=== PATIENT | male | born 1995 | race African-American/Black ===

== ENCOUNTER 2017-04-11 05:06 | Emergency (ER) | payer OTHER ==
[~2017-04-11] VITALS: Ht 182.9 cm; Wt 77.0 kg
[2017-04-11 05:07] VITALS: BP 160/94
== END 2017-04-11 06:30 | disposition left against medical advice (07) ==
LOC: ER 05:06
DX: G43.909 Migraine, unspecified, not intractable, without status migrainosus (principal); Z53.21 Procedure and treatment not carried out due to patient leaving prior to being seen by health care provider

== ENCOUNTER 2020-04-07 12:29 | Emergency (ER) | payer MEDICAID, OTHER ==
[~2020-04-07] VITALS: Ht 172.7 cm; Wt 82.0 kg
[2020-04-07 12:37] VITALS: BP 110/60
[2020-04-07] MEDS ORDERED: SODIUM CHLORIDE 0.9% 1,000 ML IV ONE (12:57)
[2020-04-07 13:31] LABS: BASOPHILS % 0.7 % (0.0-2.0); EOSINOPHILS % 1.4 % (0.0-5.0); HEMATOCRIT. 37.4 % (42.0-52.0); HEMOGLOBIN. 13.2 g/dL (14.0-18.0); LYMPHOCYTES % 20.4 % (20.0-50.0); MEAN CORPUSCULAR HEMOGLOBIN 31.4 pg (28.0-32.0); MEAN CORPUSCULAR VOLUME 89.3 fL (80.0-94.0); MEAN PLATELET VOLUME 8.1 fl (7.4-10.4); MONOCYTES % 10.6 % (2.0-8.0); NEUTROPHILS % 66.9 % (40.0-76.0); PLATELET 215 x1000/uL (130-400); RED BLOOD CELL COUNT 4.19 mill/uL (4.7-6.1); RED CELL DISTRIBUTION WIDTH 13.4 % (11.6-14.6)
[2020-04-07 14:23] LABS: CHLORIDE 110 mEq/L (98-107)
[2020-04-07 15:01] LABS: ETHANOL BLOOD < 10 mg/dL
== END 2020-04-07 17:14 | disposition left against medical advice (07) ==
LOC: ER 12:29
DX: F15.10 Other stimulant abuse, uncomplicated (principal); E11.9 Type 2 diabetes mellitus without complications; I10 Essential (primary) hypertension; G43.909 Migraine, unspecified, not intractable, without status migrainosus
CPT/HCPCS: 36415; 80053; 80320; 85025; 99283; J7030; G0480

== ENCOUNTER 2020-04-28 02:15 | Emergency (ER) | payer MEDICAID ==
[~2020-04-28] VITALS: Ht 177.8 cm; Wt 77.0 kg
[2020-04-28 02:56] LABS: BASOPHILS % 0.8 % (0.0-2.0); EOSINOPHILS % 7.1 % (0.0-5.0); HEMATOCRIT. 38.7 % (42.0-52.0); MEAN CORPUSCULAR HEMOGLOBIN 31.3 pg (28.0-32.0); MEAN CORPUSCULAR VOLUME 93.3 fL (80.0-94.0); MEAN PLATELET VOLUME 8.1 fl (7.4-10.4); MONOCYTES % 10.2 % (2.0-8.0); NEUTROPHILS % 49.9 % (40.0-76.0); PLATELET 229 x1000/uL (130-400); RED BLOOD CELL COUNT 4.15 mill/uL (4.7-6.1); RED CELL DISTRIBUTION WIDTH 14.2 % (11.6-14.6)
[2020-04-28 03:03] LABS: CHLORIDE 109 mEq/L (98-107)
[2020-04-28 03:10] LABS: ETHANOL BLOOD < 10 mg/dL
[2020-04-28 05:35] LABS: *AMPHETAMINES SCREEN URINE NEGATIVE (NEGATIVE)
[2020-04-28 05:36] LABS: *BARBITURATES SCREEN URINE NEGATIVE (NEGATIVE); *BENZODIAZEPINES SCREEN URINE NEGATIVE (NEGATIVE); *COCAINE SCREEN URINE NEGATIVE (NEGATIVE); METHADONE URINE SCREEN NEGATIVE (NEGATIVE); OPIATES URINE SCREEN NEGATIVE (NEGATIVE)
[2020-04-28 05:37] LABS: CANNABINOID URINE SCREEN PRESUMTIVE POSITIVE (NEGATIVE); PHENCYCLIDINE URINE SCREEN NEGATIVE (NEGATIVE)
[2020-04-28] MEDS: OLANZAPINE 10MG TABLET PO SCH (09:00)
[2020-04-28] MEDS ORDERED: LORAZEPAM 1MG TABLET PO ONE (09:45)
[2020-04-28] MEDS ORDERED: LORAZEPAM 2MG/ML CPJ IM ONE (21:15)
[2020-04-28] MEDS ORDERED: HALOPERIDOL LACTATE 5MG/ML VIAL IM ONE (21:15)
[2020-04-29] MEDS: OLANZAPINE 10MG TABLET PO SCH (09:34)
[2020-04-29 20:00] VITALS: BP 113/65
== END 2020-04-29 21:56 ==
LOC: ER 02:41
DX: F23 Brief psychotic disorder (principal); F91.8 Other conduct disorders; F15.10 Other stimulant abuse, uncomplicated; I10 Essential (primary) hypertension; E11.9 Type 2 diabetes mellitus without complications; G43.909 Migraine, unspecified, not intractable, without status migrainosus; Z03.818 Encounter for observation for suspected exposure to other biological agents ruled out; Z75.1 Person awaiting admission to adequate facility elsewhere
CPT/HCPCS: 36415; 80053; 80305; 80307; 80320; 80329; 85025; 87635; 93005; 96372; 99285; J1630; J2060; G0480

== ENCOUNTER 2023-03-12 18:41 | Emergency (ER) | payer MEDICAID ==
[~2023-03-12] VITALS: Ht 177.8 cm; Wt 68.0 kg
[2023-03-12] MEDS ORDERED: LORAZEPAM 2MG/ML CPJ IM ONE (21:30)
[2023-03-12] MEDS ORDERED: HALOPERIDOL LACTATE 5MG/ML VIAL IM ONE (21:30)
[2023-03-12 23:02] LABS: EOSINOPHILS % 5.7 % (0.0-5.0); HEMATOCRIT. 39.5 % (42.0-52.0); HEMOGLOBIN. 13.5 g/dL (14.0-18.0); LYMPHOCYTES % 48.7 % (20.0-50.0); MEAN CORPUSCULAR VOLUME 90.5 fL (80.0-94.0); MEAN PLATELET VOLUME 8.2 fl (7.4-10.4); MONOCYTES % 8.8 % (2.0-8.0); NEUTROPHILS % 35.8 % (40.0-76.0); PLATELET 294 x1000/uL (130-400); RED BLOOD CELL COUNT 4.36 mill/uL (4.7-6.1); RED CELL DISTRIBUTION WIDTH 13.5 % (11.6-14.6)
[2023-03-13 00:34] LABS: CHLORIDE 106 mEq/L (98-107)
[2023-03-13 00:40] LABS: ETHANOL BLOOD < 10 mg/dL (-10)
[2023-03-13 05:23] LABS: *AMPHETAMINES SCREEN URINE PRESUMTIVE POSITIVE (NEGATIVE); *BARBITURATES SCREEN URINE NEGATIVE (NEGATIVE); *BENZODIAZEPINES SCREEN URINE NEGATIVE (NEGATIVE); *COCAINE SCREEN URINE NEGATIVE (NEGATIVE); CANNABINOID URINE SCREEN PRESUMTIVE POSITIVE (NEGATIVE); METHADONE URINE SCREEN NEGATIVE (NEGATIVE); OPIATES URINE SCREEN NEGATIVE (NEGATIVE); PHENCYCLIDINE URINE SCREEN NEGATIVE (NEGATIVE)
[2023-03-14 10:37] VITALS: BP 114/76
== END 2023-03-14 12:20 | disposition home or self-care (01) ==
LOC: ER 18:41
DX: F23 Brief psychotic disorder (principal); E11.9 Type 2 diabetes mellitus without complications; I10 Essential (primary) hypertension; G43.909 Migraine, unspecified, not intractable, without status migrainosus; Z20.822 Contact with and (suspected) exposure to COVID-19
CPT/HCPCS: 36415; 80048; 80305; 80307; 80320; 80329; 85025; 87426; 96372; 99285; C9803; J1630; J2060; Z7610; G0480